=== PATIENT | female | born 1940 | race African-American/Black ===

== ENCOUNTER → 2017-02-27 | Outpatient (CLI) | payer BC ==
[2017-02-24 11:00] VITALS: BP 168/86
[~2017-02-27] MED LIST: ASPI-630 PO; DONE10TA7 PO; LOSA50TA6 PO; MEMA10TA PO; SIMV20TA3 PO
--- NOTE | 2017-02-27 19:10 | EEG ---
DATE OF SERVICE: 02/27/2017 EEG NUMBER: [id number] OBJECTIVE: This is a 76-year-old -[place] female patient with history of mental status changes. EEG was requested to evaluate cerebral activity. METHODS: Twenty electrodes were applied according to the international 10-20 electrode placement system. EKG monitoring, hyperventilation, intermittent photic stimulation, monopolar and bipolar montages are routinely utilized. The record was obtained on a digital system with video monitoring. FINDINGS: 1. Background: The patient was recorded in the awake and drowsy states. No actual sleep state was recorded. The overall background amplitude is 10-20 microvolts. A posterior dominant rhythm of 8-10 Hz is observed with superimposed slowing in theta frequency, but is less than 50% of the time. 2. Abnormalities: No specific epileptiform discharge or electrographic seizure is seen. Slowing in theta frequency noted, but less than 50% of the time. 3. Activation: Hyperventilation was not performed because the patient was unable to follow the commands. Intermittent photic stimulation was performed with photic driving. IMPRESSION: This EEG falls into the abnormal category of the study for the awake and drowsy states. No actual sleep state was recorded. There is superimposed slowing in theta frequency, but less than 50% of the time. No focal, lateralizing, specific epileptiform discharge or electrographic seizure is seen. This EEG may suggest mild encephalopathy. KANDI FORTUNE MD DR: Zev JOB#: [id number] / [id number] [facility]ASS[facility]
== END | disposition home or self-care (01) ==
LOC: RT 10:27
PROVIDERS: ATTEND Psychiatry & Neurology Neurology
DX: R41.82 Altered mental status, unspecified (principal)
CPT/HCPCS: 95816

== ENCOUNTER 2017-04-11 10:01 | Inpatient (IN) | payer BC ==
[2017-04-11 10:19] LABS: BILIRUBIN,URINE NEGATIVE (NEG); CLARITY,URINE CLEAR; COLOR,URINE YELLOW; GLUCOSE,URINE NEGATIVE (NEG); NITRITE,URINE NEGATIVE (NEG); PH,URINE 5.5; PROTEIN,URINE 30 mg/dL (NEG-TRACE); UROBILINOGEN,URINE 0.2 mg/dL (0.2 mg/dL)
[2017-04-11 10:29] LABS: BACTERIA,URINE 0 /HPF (0-FEW); RBC,URINE RARE /HPF (0-2); SQUAMOUS EPITHELIAL CELL,UR FEW /LPF; WBC,URINE OCC /HPF (0-4)
[2017-04-11 10:30] LABS: HYALINE CASTS, URINE MODERATE /HPF
[2017-04-11 10:38] LABS: AMPHETAMINE/METHAMPHETAMINE NEG (NEG); BARBITURATES NEG (NEG); BENZODIAZEPINES NEG (NEG); CANNABINOIDS NEG (NEG); COCAINE NEG (NEG); ETHANOL, URINE NEG (NEG); METHADONE NEG (NEG); OPIATES NEG (NEG); PHENCYCLIDINE NEG (NEG)
[2017-04-11 11:41] LABS: ADD MAN DIFF? NO
[2017-04-11 11:44] LABS: BASO # 0.1 x10^3/uL (0.0-0.2); BASO % 1 % (0-3); EOS # 0.1 x10^3/uL (0.0-0.7); EOS % 1 % (0-3); HEMATOCRIT 45.3 % (36.0-47.0); HEMOGLOBIN 15.4 g/dL (12.0-15.5); LYMPH # 1.1 x10^3/uL (1.0-4.8); LYMPH % 11 % (24-48); MEAN CORPUSCULAR HEMOGLOBIN 29 pg (25-35); MEAN CORPUSCULAR HGB CONC 34 g/dL (31-37); MEAN CORPUSCULAR VOLUME 86 fL (79-100); MONO # 0.4 x10^3/uL (0.0-1.1); MONO % 4 % (0-9); NEUT # 7.7 x10^3uL (1.8-7.7); NEUT % 83 % (31-73); PLATELET COUNT 373 x10^3/uL (140-400); RED CELL DISTRIBUTION WIDTH 14.6 % (11.5-14.5); WHITE BLOOD COUNT 9.3 x10^3/uL (4.0-11.0)
[2017-04-11 11:56] LABS: ANION GAP 10 (6-14); BLOOD UREA NITROGEN 12 mg/dL (7-20); CALCIUM 9.4 mg/dL (8.5-10.1); CARBON DIOXIDE 27 mmol/L (21-32); CHLORIDE 103 mmol/L (98-107); CREATININE 0.7 mg/dL (0.6-1.0); GLUCOSE 117 mg/dL (70-99); POTASSIUM 4.4 mmol/L (3.5-5.1); SODIUM 140 mmol/L (136-145)
[2017-04-11 11:58] LABS: ETHANOL < 10 mg/dL (0-10)
[2017-04-11 12:01] LABS: ALK PHOS 117 U/L (46-116); ALT (SGPT) 27 U/L (14-59); AST (SGOT) 26 U/L (15-37); DIRECT BILIRUBIN 0.2 mg/dL (0.0-0.2); PHENY 0.9 mcg/mL (10.0-20.0)
[2017-04-11 12:04] LABS: LACTIC ACID 3.3 mmol/L (0.4-2.0)
[2017-04-11 12:27] LABS: INR 1.1 (0.8-1.1); PARTIAL THROMBOPLASTIN TIME 24 SEC (24-38); PROTHROMBIN TIME PATIENT 13.7 SEC (11.7-14.0)
[2017-04-11] MEDS ORDERED: ONDANSETRON PF 4 MG/2 ML VIAL. IV ×2 (13:45→14:30)
[2017-04-11] MEDS: levETIRAcetam 1,000 MG in IV DEXTROSE 5% 100 ML IV (13:49)
[2017-04-11] MEDS ORDERED: ACETAMINOPHEN 500 MG TABLET PO (14:30)
[2017-04-11] MEDS ORDERED: GADOBUTROL 7.5 MMOL/7.5 ML VIAL IV (15:15)
[2017-04-11 15:48] LABS: AMMONIA 43 mcmol/L (11-34)
[2017-04-11] MEDS: LABETALOL 20 MG/4 ML DISP.SYRIN. IVP ×4 (16:50→23:43)
[2017-04-11] MEDS: IV 1/2 NORMAL SALINE 1,000 ML IV (16:52)
[2017-04-11 18:01] LABS: THYROID STIM HORMONE (TSH) 1.571 uIU/mL (0.358-3.74)
[2017-04-11 18:02] LABS: VITAMIN-B12 684 pg/mL (247-911)
[2017-04-11] MEDS: HALOPERIDOL LACTATE 5 MG/ML VIAL. IVP (21:20)
[2017-04-11 21:24] LABS: LACTIC ACID 0.9 mmol/L (0.4-2.0)
[2017-04-12] MEDS ORDERED: hydrALAZINE 20 MG/ML VIAL. IVP
[2017-04-12] MEDS: ENALAPRILAT 1.25 MG/ML VIAL. IV ×2 (03:29→12:38)
[2017-04-12] MEDS: HALOPERIDOL LACTATE 5 MG/ML VIAL. IVP (03:33)
[2017-04-12] MEDS: LABETALOL 20 MG/4 ML DISP.SYRIN. IVP (05:27)
[2017-04-12] MEDS: IV 1/2 NORMAL SALINE 1,000 ML IV ×2 (09:02→20:45)
[2017-04-12] MEDS: LOSARTAN POTASSIUM 50 MG TABLET. PO (14:26)
[2017-04-12] MEDS: ASPIRIN CHEWABLE 81 MG TABLET. PO (14:27)
[2017-04-12] MEDS: DONEPEZIL HCL 10 MG TABLET. PO (14:27)
[2017-04-12] MEDS: ENOXAPARIN 40 MG/0.4 ML SYRINGE. SQ (14:27)
[2017-04-12] MEDS: MEMANTINE 10 MG TABLET. PO ×2 (14:27→21:00)
[2017-04-12] MEDS ORDERED: ALBUMIN HUMAN 5% 500 ML IV (15:30)
[2017-04-12] MEDS: SIMVASTATIN 20 MG TABLET PO (21:00)
[2017-04-12 23:07] LABS: MRSA BY PCR Negative (Negative)
[2017-04-13] MEDS: IV 1/2 NORMAL SALINE 1,000 ML IV (07:45)
[2017-04-13 08:23] LABS: ADD MAN DIFF? NO
[2017-04-13 08:24] LABS: BASO % 1 % (0-3); EOS # 0.1 x10^3/uL (0.0-0.7); EOS % 2 % (0-3); HEMATOCRIT 39.1 % (36.0-47.0); HEMOGLOBIN 13.1 g/dL (12.0-15.5); LYMPH % 16 % (24-48); MEAN CORPUSCULAR HEMOGLOBIN 28 pg (25-35); MEAN CORPUSCULAR HGB CONC 34 g/dL (31-37); MEAN CORPUSCULAR VOLUME 85 fL (79-100); MONO # 0.6 x10^3/uL (0.0-1.1); MONO % 11 % (0-9); NEUT # 4.1 x10^3uL (1.8-7.7); NEUT % 70 % (31-73); PLATELET COUNT 298 x10^3/uL (140-400); RED BLOOD COUNT 4.62 x10^6/uL (3.50-5.40); RED CELL DISTRIBUTION WIDTH 14.7 % (11.5-14.5); WHITE BLOOD COUNT 5.9 x10^3/uL (4.0-11.0)
[2017-04-13] MEDS: ASPIRIN CHEWABLE 81 MG TABLET. PO ×2 (08:26→10:41)
[2017-04-13] MEDS: DONEPEZIL HCL 10 MG TABLET. PO ×2 (08:26→10:41)
[2017-04-13] MEDS: MEMANTINE 10 MG TABLET. PO ×3 (08:26→20:32)
[2017-04-13] MEDS: LOSARTAN POTASSIUM 50 MG TABLET. PO ×2 (08:26→10:41)
[2017-04-13 08:36] LABS: ANION GAP 10 (6-14); BLOOD UREA NITROGEN 8 mg/dL (7-20); CALCIUM 9.1 mg/dL (8.5-10.1); CARBON DIOXIDE 25 mmol/L (21-32); CHLORIDE 105 mmol/L (98-107); CREATININE 0.7 mg/dL (0.6-1.0); GLUCOSE 100 mg/dL (70-99); SODIUM 140 mmol/L (136-145)
[2017-04-13] MEDS: ENOXAPARIN 40 MG/0.4 ML SYRINGE. SQ (14:47)
[2017-04-13] MEDS: cloNIDine HCL 0.1 MG TABLET PO (15:27)
[2017-04-13] MEDS: SIMVASTATIN 20 MG TABLET PO (20:32)
[2017-04-13] MEDS: LORazepam 1 MG TABLET PO ×2 (21:13→23:10)
[2017-04-14] MEDS: ASPIRIN CHEWABLE 81 MG TABLET. PO (09:31)
[2017-04-14] MEDS: MEMANTINE 10 MG TABLET. PO (09:32)
[2017-04-14] MEDS: LOSARTAN POTASSIUM 50 MG TABLET. PO (09:32)
[2017-04-14] MEDS: DONEPEZIL HCL 10 MG TABLET. PO (09:32)
[2017-04-14] MEDS: ENOXAPARIN 40 MG/0.4 ML SYRINGE. SQ (13:04)
[2017-04-14 13:09] LABS: INFLUENZA A PATIENT NEGATIVE (NEGATIVE); INFLUENZA B PATIENT NEGATIVE (NEGATIVE); OBC FLU VALID
== END 2017-04-14 15:00 | disposition home health service (06) | DRG 100 ==
LOC: ER 10:01 → 6 SOUTH 04-12 15:10 → ER 14:40 → 1 WEST ICU 13:00
DX: R56.9 Unspecified convulsions (principal); G93.41 Metabolic encephalopathy; E87.2 Acidosis; I16.1 Hypertensive emergency; E55.9 Vitamin D deficiency, unspecified; E78.5 Hyperlipidemia, unspecified; F02.80 Dementia in other diseases classified elsewhere, unspecified severity, without behavioral disturbance, psychotic disturbance, mood disturbance, and anxiety; G30.9 Alzheimer's disease, unspecified; Z96.659 Presence of unspecified artificial knee joint; I10 Essential (primary) hypertension; M19.90 Unspecified osteoarthritis, unspecified site; R32 Unspecified urinary incontinence; Z90.710 Acquired absence of both cervix and uterus
CPT/HCPCS: 36415; 70450; 70553; 71045; 72125; 80048; 80076; 80185; 80307; 81001; 82140; 82607; 83605; 84443; 85025; 85610; 85730; 87641; 87804; 87804-59; 92526-GN; 92610-GN; 93005; 95816; 96365; 96375; 97162-GP; 97165-GO; 99291; 99291-25; G0480; J1630; J1650; J1953; J2060; J3490